=== PATIENT | male | born 1960 | race Caucasian/White ===

== ENCOUNTER 2018-09-15 14:04 | Emergency (ER) | payer OTHER ==
[2018-09-15 14:12] VITALS: TEMP 97.4; O2SAT 98
[2018-09-15] MEDS ORDERED: Lidocaine Hydrochloride 5 ML INJ ONE (14:51)
[2018-09-15] MEDS ORDERED: Lidocaine Hydrochloride 10 ML INJ ONE (16:14)
[2018-09-15] MEDS ORDERED: Oxycodone/Acetaminophen 5/325 mg Tab PO STA (16:51)
--- NOTE | 2018-09-15 16:55 | C.PDOC ---
History Of Present Illness 58 y/o male comes in to ED with a huge abscess on his left lower back. Patient states that he had this lump for years now and for the last 3 weeks, it got worse and started getting painful, associated with some redness. Patient denies any fever, chills, or other complaints. Time Seen by Provider: 09/15/18 14:36 Chief Complaint (Nursing): Abnormal Skin Integrity History Per: Patient History/Exam Limitations: no limitations Onset/Duration Of Symptoms: Days Current Symptoms Are (Timing): Still Present Past Medical History Reviewed: Historical Data, Nursing Documentation, Vital Signs Vital Signs: Last Vital Signs Temp 97.4 F L 09/15/18 14:10 Pulse 70 09/15/18 14:10 Resp 18 09/15/18 14:10 BP 168/92 H 09/15/18 14:10 Pulse Ox 98 09/15/18 14:10 - [facility] Procedures CLOSURE SKIN & SUBCUTANEOUS NEC (04/12/14) TETANUS TOXOID ADMINIST (04/12/14) Family History: States: No Known Family Hx - Social History Hx Tobacco Use: Yes Hx Alcohol Use: No Hx Substance Use: No - Immunization History Hx Tetanus Toxoid Vaccination: No Hx Influenza Vaccination: (UNK) Hx Pneumococcal Vaccination: (UNK) Review Of Systems Except As Marked, All Systems Reviewed And Found Negative. Constitutional: Negative for: Fever, Chills Skin: Positive for: Other (Abscess on left lower back) Physical Exam - Physical Exam Appears: Non-toxic, No Acute Distress Skin: Warm, Dry, Other (8 cm in diameter cystic structure, fluctuance, and tender to palpation at left lower back; some cluster of pustula in lateral aspect) Head: Atraumatic, Normacephalic Eye(s): bilateral: Normal Inspection Oral Mucosa: Moist Neck: Supple Extremity: Bilateral: Atraumatic, Normal Color And Temperature, Normal ROM Neurological/Psych: Oriented x3, Normal Speech ED Course And Treatment O2 Sat by Pulse Oximetry: 98 (RA) Pulse Ox Interpretation: Normal Progress Note: Cleocin and percocet PO given to patient. Wound culture sent to lab. Instructed patient to follow up in the clinic and to return to ED for a wound check and package removal. - Incision & Drainage Of Abscess Anesthesia: Lidocaine 1% Procedure: Incised W/Scalpel Blade#: (11), Drained Pus (Purulent discharge at first then cottage cheese-like and brownish exudate), Irrigated Cavity W/Saline, Probed To Break Up Loculations, Packed W/Gauze, Cultures Obtained And Sent To Lab Disposition - Disposition Referrals: [facility] at [facility] [Outside] Disposition: HOME/ ROUTINE Disposition Time: 16:55 Condition: STABLE Additional Instructions: Follow up in Clinic within 2-3 days. Wound check and dressing change in 2 days. Prescriptions: Clindamycin [Cleocin] 300 mg PO Q6 #28 cap oxyCODONE/Acetaminophen [Percocet 5/325 mg Tab] 1 tab PO QID PRN #20 tab PRN Reason: Pain Instructions: Abscess Incision and Drainage (DC) Forms: [employer] (Latvian), Work Excuse Print Language: MOHAWK - Clinical Impression Clinical Impression: Infected sebaceous cyst - PA / PATIENT FINANCIAL ADVOCATE / Resident Statement MD/DO has reviewed & agrees with the documentation as recorded. - Scribe Statement The provider has reviewed the documentation as recorded by the Rickyibmilana Nicolas All medical record entries made by the Rickyibmilana were at my direction and personally dictated by me. I have reviewed the chart and agree that the record accurately reflects my personal performance of the history, physical exam, medical decision making, and the department course for this patient. I have also personally directed, reviewed, and agree with the discharge instructions and disposition.
[2018-09-15] MEDS ORDERED: Oxycodone/Acetaminophen 5/325 mg Tab ONE (17:05)
[2018-09-15 17:36] VITALS: BP 132/79; PULSE 76; RESP 16
== END 2018-09-15 17:35 | disposition home or self-care (01) ==
LOC: C.ER 14:04
DX: L72.3 Sebaceous cyst (principal); Z72.0 Tobacco use

== ENCOUNTER 2018-09-17 08:32 | Emergency (ER) | payer OTHER ==
[2018-09-17 08:40] VITALS: BP 164/85; PULSE 63; RESP 18; TEMP 97.4; O2SAT 99
--- NOTE | 2018-09-17 09:31 | C.PDOC ---
History Of Present Illness 58 y/o male pt presents to the ER for wound check on his lower back, s/p I&D 2 days ago. Pt reports he has minor pain to wound site. Pt is eating well and denies fever, weakness, numbness, nausea, vomiting, change in bladder or bowel habits, SOB, chest pain, dizziness and light headedness. Patient reports he has been taking the clindamycin as prescribed. Time Seen by Provider: 09/17/18 08:42 Chief Complaint (Nursing): Wound Check History Per: Patient History/Exam Limitations: no limitations Onset/Duration Of Symptoms: Days Ago Past Medical History Reviewed: Historical Data, Nursing Documentation, Vital Signs Vital Signs: Last Vital Signs Temp 97.4 F L 09/17/18 08:36 Pulse 63 09/17/18 08:36 Resp 18 09/17/18 08:36 BP 164/85 H 09/17/18 08:36 Pulse Ox 99 09/17/18 08:36 - [facility] Procedures CLOSURE SKIN & SUBCUTANEOUS NEC (04/12/14) TETANUS TOXOID ADMINIST (04/12/14) Family History: States: No Known Family Hx - Social History Hx Tobacco Use: Yes Hx Alcohol Use: Yes Hx Substance Use: No - Immunization History Hx Tetanus Toxoid Vaccination: No Hx Influenza Vaccination: (UNK) Hx Pneumococcal Vaccination: (UNK) Review Of Systems Constitutional: Positive for: Other (eating well ). Negative for: Fever Eyes: Negative for: Pain ENT: Negative for: Ear Pain Cardiovascular: Negative for: Chest Pain, Light Headedness Respiratory: Negative for: Shortness of Breath Gastrointestinal: Negative for: Nausea, Vomiting, Abdominal Pain, Diarrhea, Constipation Genitourinary: Negative for: Dysuria Musculoskeletal: Positive for: Other (pain on wound site ) Skin: Negative for: Rash Neurological: Negative for: Dizziness Physical Exam - Physical Exam Appears: Well, Non-toxic, No Acute Distress Skin: Warm, Dry Head: Atraumatic, Normacephalic Eye(s): bilateral: PERRL, EOMI Back: Other (lower back dressing with packing; no surrounding erythema ) Extremity: Normal ROM Neurological/Psych: Oriented x3, Normal Speech Gait: Steady ED Course And Treatment O2 Sat by Pulse Oximetry: 99 (RA) Pulse Ox Interpretation: Normal Medical Decision Making Medical Decision Making: Plans: -- packing change -- ibuprofen PA Elisca changed dressing and packing pt will return in 2 days for wound check and re-packing Disposition - Disposition Disposition: HOME/ ROUTINE Disposition Time: 09:30 Condition: GOOD Additional Instructions: Return in 2 days for wound check and dressing change. Return immediately with any worsening symptoms. Follow-up with PMD within 2 days. Continue with antibiotics Instructions: Abscess Incision and Drainage (DC) Forms: [employer] (Salvadorean) - Clinical Impression Clinical Impression: Wound check, abscess, Infected sebaceous cyst - Scribe Statement The provider has reviewed the documentation as recorded by the Mireya Fofana Do Provider Attestation: All medical record entries made by the Mireya were at my direction and personally dictated by me. I have reviewed the chart and agree that the record accurately reflects my personal performance of the history, physical exam, medical decision making, and the department course for this patient. I have also personally directed, reviewed, and agree with the discharge instructions and disposition.
== END 2018-09-17 09:55 | disposition home or self-care (01) ==
LOC: C.ER 08:32
DX: Z48.00 Encounter for change or removal of nonsurgical wound dressing (principal); L72.3 Sebaceous cyst; L02.91 Cutaneous abscess, unspecified

== ENCOUNTER 2018-09-19 16:24 | Emergency (ER) | payer OTHER ==
[2018-09-19 16:35] VITALS: BP 170/84; PULSE 58; RESP 20; TEMP 98.1; O2SAT 98
--- NOTE | 2018-09-19 19:02 | C.PDOC ---
History Of Present Illness 58 y/o male presents to the ER for wound check to back. Patient states that he was evaluated in [facility] ER and had I&D 4 days ago. Patient reports that her returned to the ER 2 days ago and the abscess was repacked. He notes that he continues to have drainage. Denies having fever and chills. Time Seen by Provider: 09/19/18 16:48 Chief Complaint (Nursing): Wound Check History Per: Patient History/Exam Limitations: no limitations Past Medical History Reviewed: Historical Data, Nursing Documentation, Vital Signs Vital Signs: Last Vital Signs Temp 98.1 F 09/19/18 16:33 Pulse 58 L 09/19/18 16:33 Resp 20 09/19/18 16:33 BP 170/84 H 09/19/18 16:33 Pulse Ox 98 09/19/18 16:33 - Medical History PMH: No Chronic Diseases Other Surgeries: Hx of surgeries - [facility] Procedures CLOSURE SKIN & SUBCUTANEOUS NEC (04/12/14) TETANUS TOXOID ADMINIST (04/12/14) Family History: States: No Known Family Hx - Social History Hx Tobacco Use: Yes Hx Alcohol Use: Yes Hx Substance Use: No - Immunization History Hx Tetanus Toxoid Vaccination: No Hx Influenza Vaccination: No Hx Pneumococcal Vaccination: No Review Of Systems Except As Marked, All Systems Reviewed And Found Negative. Constitutional: Negative for: Fever, Chills Skin: Positive for: Other (back abscess drainage) Physical Exam - Physical Exam Appears: Non-toxic, No Acute Distress Skin: Normal Color, Warm, Dry, Other (back:purulent discharge from abscess with mild surrounding erythema) Head: Atraumatic, Normacephalic Eye(s): bilateral: Normal Inspection Nose: Normal Oral Mucosa: Moist Neck: Supple Chest: Symmetrical Neurological/Psych: Oriented x3, Normal Speech ED Course And Treatment O2 Sat by Pulse Oximetry: 98 (RA) Pulse Ox Interpretation: Normal Medical Decision Making Medical Decision Making: New packing has been applied to abscess. Patient tolerated well. Patient has been instructed to apply warm packs and discharged. Disposition - Disposition Disposition: HOME/ ROUTINE Disposition Time: 17:00 Condition: GOOD Additional Instructions: MARYSOL ASHLEY, thank you for letting us take care of you today. The emergency medical care you received today was directed at your acute symptoms. If you were prescribed any medication, please fill it and take as directed. It may take several days for your symptoms to resolve. Return to the Emergency Department if your symptoms worsen, do not improve, or if you have any other problems. Please contact your doctor or call one of the physicians/clinics you have been referred to that are listed on the Patient Visit Information form that is included in your discharge packet. Bring any paperwork you were given at d ischarge with you along with any medications you are taking to your follow up visit. Our treatment cannot replace ongoing medical care by a primary care provider outside of the emergency department. Thank you for allowing the [facility] team to be part of your care today. YOU NEED TO APPLY WARM PACKS TO THE AREA MULTIPLE TIMES A DAY. Follow up with the emergency room in 2 days for a wound evaluation. MARYSOL ASHLEY, hallie por dejarnos cuidar de wei couch. La atencin mdica de emergencia que recibi hoy se dirigi a iván sntomas agudos. Si le recetaron algn medicamento, llnelo y tmelo segn las indicaciones. Los sntomas pueden tardar varios mathis en resolverse. Regrese al Departamento de Emergencias si iván sntomas empeoran, no mejoran o si tiene otros problemas. Comunquese con fuller mdico o llame a yuan de los mdicos / clnicas a los que newsome sido referido que figuran en el formulario de Informacin de visita al paciente que se incluye en fuller paquete de jonh. Lleve todos los documentos que le entregaron al momento del jonh junto con todos los medicamentos que est tomando para fuller visita de seguimiento. Nuestro tratamiento no puede reemplazar la atencin mdica continua por un proveedor de atencin primaria fuera del departamento de emergencias. Hallie por permitir que el equipo de [facility] sea parte de fuller atencin howoody. NECESITA APLICAR LOS PAQUETES CALIENTES AL CHAVEZ MLTIPLES VECES AL DA. Kalyn un seguimiento en la cece de emergencias en 2 mathis para bev evaluacin de la herida. Instructions: Abscess Incision and Drainage (DC) Forms: [employer] (Northern Irish) Print Language: SLOVAK - Clinical Impression Clinical Impression: Wound check, abscess - Scribe Statement The provider has reviewed the documentation as recorded by the Scribe Sarmad Arreguin Provider Attestation: All medical record entries made by the Scribe were at my direction and personally dictated by me. I have reviewed the chart and agree that the record accurately reflects my personal performance of the history, physical exam, medical decision making, and the department course for this patient. I have also personally directed, reviewed, and agree with the discharge instructions and disposition.
== END 2018-09-19 17:18 | disposition home or self-care (01) ==
LOC: C.ER 16:24
DX: Z48.00 Encounter for change or removal of nonsurgical wound dressing (principal); L02.91 Cutaneous abscess, unspecified

== ENCOUNTER 2018-09-21 08:44 | Emergency (ER) | payer OTHER, SELFPAY ==
[2018-09-21 08:59] VITALS: BP 160/78; PULSE 60; RESP 16; TEMP 97.8; O2SAT 100
--- NOTE | 2018-09-21 09:12 | C.PDOC ---
History Of Present Illness 58 year old male comes in for a wound check and packing removal of an abscess on his left lower back. Patient initially had I&D done on 09/15/18 and had packing removed and placed 2 more times. Patient was compliant with his antibiotics clindamycin and states the area feels much better, less painful, and less swollen. Patient has no other complaints at this time. Time Seen by Provider: 09/21/18 09:03 Chief Complaint (Nursing): Abnormal Skin Integrity History Per: Patient History/Exam Limitations: no limitations Onset/Duration Of Symptoms: Days Current Symptoms Are (Timing): Still Present Past Medical History Reviewed: Historical Data, Nursing Documentation, Vital Signs Vital Signs: Last Vital Signs Temp 97.8 F 09/21/18 08:57 Pulse 60 09/21/18 08:57 Resp 16 09/21/18 08:57 BP 160/78 H 09/21/18 08:57 Pulse Ox 100 09/21/18 08:57 - [facility] Procedures CLOSURE SKIN & SUBCUTANEOUS NEC (04/12/14) TETANUS TOXOID ADMINIST (04/12/14) Family History: States: No Known Family Hx - Social History Hx Tobacco Use: Yes Hx Alcohol Use: Yes Hx Substance Use: No - Immunization History Hx Tetanus Toxoid Vaccination: No Hx Influenza Vaccination: No Hx Pneumococcal Vaccination: No Review Of Systems Constitutional: Negative for: Fever, Chills Cardiovascular: Negative for: Chest Pain Respiratory: Negative for: Shortness of Breath Gastrointestinal: Negative for: Nausea, Vomiting, Diarrhea Genitourinary: Negative for: Dysuria, Hematuria Skin: Positive for: Other (Abscess on left lower back) Physical Exam - Physical Exam Appears: Non-toxic, No Acute Distress Skin: Warm, Dry Head: Atraumatic, Normacephalic Eye(s): bilateral: Normal Inspection Oral Mucosa: Moist Neck: Supple Cardiovascular: Rhythm Regular, No Murmur Respiratory: Normal Breath Sounds, No Rales, No Rhonchi, No Wheezing Back: Other (Left lumbar area has an open pustule draining purulent discharge, mildly tender, no fluctuance, no erythema) Extremity: Bilateral: Atraumatic, Normal Color And Temperature, Normal ROM Neurological/Psych: Oriented x3, Normal Speech ED Course And Treatment O2 Sat by Pulse Oximetry: 100 (RA) Pulse Ox Interpretation: Normal Progress Note: Removed current packing and placed a new packing on the area. Patient is in no acute distress and will be discharged home. Instructed patient to return to the ER in 2 days for wound check. Disposition Counseled Patient/Family Regarding: Diagnosis, Need For Followup - Disposition Referrals: [facility] [Outside] Disposition: HOME/ ROUTINE Disposition Time: 09:15 Condition: STABLE Additional Instructions: RETURN TO EMERGENCY ROOM IN TWO DAYS FOR WOUND CHECK AND PACKING REMOVAL VUELVA A LA MIKAELA DE EMERGENCIA EN DOS PAGAN PARA EL EXAMEN DE LA HERIDA Y EL DESMONTAJE DEL EMBALAJE Instructions: Wound Care (DC) Forms: [employer] (Luxembourger) Print Language: HUNGARIAN - Clinical Impression Clinical Impression: Wound check, abscess - Scribe Statement The provider has reviewed the documentation as recorded by the Mireya Nicolas Provider Attestation: All medical record entries made by the Scribe were at my direction and personally dictated by me. I have reviewed the chart and agree that the record accurately reflects my personal performance of the history, physical exam, medical decision making, and the department course for this patient. I have also personally directed, reviewed, and agree with the discharge instructions and disposition.
== END 2018-09-21 09:15 | disposition home or self-care (01) ==
LOC: C.ER 08:44
DX: Z48.00 Encounter for change or removal of nonsurgical wound dressing (principal); L02.91 Cutaneous abscess, unspecified

== ENCOUNTER 2018-09-23 08:59 | Emergency (ER) | payer SELFPAY ==
[2018-09-23 09:18] VITALS: BP 182/75; PULSE 65; RESP 16; TEMP 98.2; O2SAT 98
[2018-09-23] MEDS ORDERED: Lidocaine Hydrochloride 10 ML INJ ONE (09:24)
--- NOTE | 2018-09-23 10:48 | C.PDOC ---
History Of Present Illness 58 y/o male presents to the ED for reevaluation of a left lower back skin wound, that has been present for years. Patient was seen here and had I&D on 09/15/18. The wound was reevaluated on the and , and packing was changed. Patient reports compliance with Clindamycin course, which he has finished. Denies any fevers or chills. Time Seen by Provider: 09/23/18 09:16 Chief Complaint (Nursing): Abnormal Skin Integrity History Per: Patient History/Exam Limitations: no limitations Onset/Duration Of Symptoms: Days Current Symptoms Are (Timing): Still Present Location Of Injury: Left: Back Past Medical History Reviewed: Historical Data, Nursing Documentation, Vital Signs Vital Signs: Last Vital Signs Temp 98.2 F 09/23/18 09:16 Pulse 65 09/23/18 09:16 Resp 16 09/23/18 09:16 BP 182/75 H 09/23/18 09:16 Pulse Ox 98 09/23/18 09:16 Surgical History: Hernia Repair - [facility] Procedures CLOSURE SKIN & SUBCUTANEOUS NEC (04/12/14) TETANUS TOXOID ADMINIST (04/12/14) Family History: States: No Known Family Hx - Social History Hx Tobacco Use: Yes Hx Alcohol Use: Yes Hx Substance Use: No - Immunization History Hx Tetanus Toxoid Vaccination: No Hx Influenza Vaccination: No Hx Pneumococcal Vaccination: No Review Of Systems Constitutional: Negative for: Fever, Chills Cardiovascular: Negative for: Chest Pain Respiratory: Negative for: Cough, Shortness of Breath Gastrointestinal: Negative for: Abdominal Pain Skin: Positive for: Other (open wound to left lower back, + purulent drainage) Neurological: Negative for: Weakness, Numbness Physical Exam - Physical Exam Appears: Well, Non-toxic, No Acute Distress Skin: Warm, Dry, Other (Packing in place to wound of left lower back, with foul- smelling cheese-like drainage, (+) Fluctuance to wound, approximately 5cm in diameter, extending up to the 2 o'clock position; Packing removed and wound was irrigated and loculations broken up; There is extensive cortical tissue from presumed sebaceous cyst seen through the initial wound, with extensive de- vitalized and thickened tissue in the 7-8 o'clock position) Extremity: Bilateral: Atraumatic, Normal ROM Pulses: Left Radial: Normal, Right Radial: Normal Neurological/Psych: Oriented x3, Normal Speech Gait: Steady ED Course And Treatment O2 Sat by Pulse Oximetry: 98 (on RA) Pulse Ox Interpretation: Normal Critical Care Time - Critical Care Note Total Time (in mins): 90 Documented critical care: time excludes all time spent performing seperately billable procedures. Laceration - Laceration Repair inner layer Wound Length (In cm): 5 Description Of Wound: Linear Wound Cleansed With: Betadine, Sterile Saline Anesthesia: Lidocaine 1% Wound Examination: Irrigated With Saline Wound Closure: Suture (x 3) Suture Technique And Material Used: Interrupted, Vicryl (2:0) Wound Complexity: Simple outer layer Wound Length (In cm): 5 Description Of Wound: Linear Wound Cleansed With: Betadine, Sterile Saline Anesthesia: Lidocaine 1% Wound Examination: Irrigated With Saline Wound Debridement/Revision: Wound Debrided, Wound Margins Revised Wound Closure: Suture (x 6) Suture Technique And Material Used: Interrupted, Nylon (6:0) Wound Complexity: Simple Medical Decision Making Medical Decision Making: Initial Impression: Visit for wound check Wound was anesthetized and cleaned, loculations broken up. Wound was retracted, and complete decortication of the prior cystic cortex extensive dark ramirez capsule material was adherent to the inner SQ tissues and was removed with blunt dissection and gentle scalpel dissection. Extensively irrigated and hemostasis to a bloodless base achieved, no FB or remaining packing/tools/noted. Wound closed in 2 layers (see procedure note) Extensively irrigated wound Patient tolerated well Prior microbiology culture shows growth of corynebacterium, scant gram+ cocci, in pairs and clusters, no sensitivity available. Amoxicilling/ibuprofen/tramadol given large abdominal pad with pressure dressing applied for adequate wound compression to avoid wound hematoma Clinical Impression: sebaceous cyst, poorly healing due to retained pieces of cortex/capsule now wound revised and capsule material removed. Disposition Doctor Will See Patient In The: Office Counseled Patient/Family Regarding: Studies Performed, Diagnosis - Disposition Referrals: [facility] [Outside] [facility] [Outside] [facility] [Outside] Disposition: HOME/ ROUTINE Disposition Time: 10:56 Condition: GOOD Additional Instructions: raheel el antibiotico (Augmentin) 2 veces al jakub por 5 maradiaga en total Ibuprofeno 400-600 mg cada 6 horas seda necessario para dolor localizado bolsa de hielo encima 1/2 hora por hora seda necessario Tramadol 50 mg (narcotico) 1 tableta cada 4-6 horas para selena mas severos Regressa el Miercoles para revisar la herida (wound check) Regressa el Viernes despues de la 1 de la tarde para revisar la herida con Dr. Phan Prescriptions: Amoxicillin/Clavulanate [Augmentin 875 MG-125 MG] 1 tab PO BID #9 tab RX: traMADol [Ultram] 50 mg PO Q6H PRN #10 tab PRN Reason: pain Instructions: Abscess Incision and Drainage (DC) Forms: [employer] (Mosotho) Print Language: SCOTTISH - Clinical Impression Clinical Impression: Infected sebaceous cyst of skin - Scribe Statement The provider has reviewed the documentation as recorded by the Scribe Alie Kauffman Provider Attestation: All medical record entries made by the Scribe were at my direction and personally dictated by me. I have reviewed the chart and agree that the record accurately reflects my personal performance of the history, physical exam, medical decision making, and the department course for this patient. I have also personally directed, reviewed, and agree with the discharge instructions and disposition.
[2018-09-23] MEDS ORDERED: Amoxicillin-Clav 875-125 mg Tab PO STA (10:55)
[2018-09-23] MEDS ORDERED: Amoxicillin-Clav 875-125 mg Tab PO ONE (11:01)
== END 2018-09-23 11:20 | disposition home or self-care (01) ==
LOC: C.ER 08:59
DX: L72.3 Sebaceous cyst (principal); Z72.0 Tobacco use

== ENCOUNTER 2018-09-25 16:10 | Emergency (ER) | payer OTHER ==
[2018-09-25 16:22] VITALS: BMI 19.5
[2018-09-25 16:24] VITALS: BP 155/84; PULSE 63; RESP 18; TEMP 98.4; O2SAT 100
[2018-09-25] MEDS ORDERED: Bacitracin 500 Units/gm Oint Foilpak UD TOP ONE (16:50)
--- NOTE | 2018-09-25 16:54 | C.PDOC ---
History Of Present Illness 58 y/o male here for wound check. pt seen in ed on 09/15,,,16,18 and today. First visit was for infected sebaceous cyst that was incised and pt put on po antibiotics. pt returned next 3 visits for post i and d wound check/packing change. on 5th visit, pt seen by Dr Phan, who removed cystic capsule and other debris from wound and then sutured wound. pt denies any complaints at this time, no fever, no pain. Time Seen by Provider: 09/25/18 16:27 Chief Complaint (Nursing): Wound Check History Per: Patient History/Exam Limitations: no limitations Onset/Duration Of Symptoms: Days Ago (10) Current Symptoms Are (Timing): Better Location Of Injury: Left: Back Quality Of Symptoms: Draining. denies: Painful Past Medical History Reviewed: Historical Data, Nursing Documentation, Vital Signs Vital Signs: Last Vital Signs Temp 98.4 F 09/25/18 16:22 Pulse 63 09/25/18 16:22 Resp 18 09/25/18 16:22 BP 155/84 H 09/25/18 16:22 Pulse Ox 100 09/25/18 16:22 - Medical History PMH: No Chronic Diseases Surgical History: Hernia Repair - [facility] Procedures CLOSURE SKIN & SUBCUTANEOUS NEC (04/12/14) TETANUS TOXOID ADMINIST (04/12/14) Family History: States: Unknown Family Hx - Social History Hx Tobacco Use: Yes Hx Alcohol Use: Yes Hx Substance Use: No - Immunization History Hx Tetanus Toxoid Vaccination: No Hx Influenza Vaccination: No Hx Pneumococcal Vaccination: No Review Of Systems Constitutional: Negative for: Fever, Chills Skin: Positive for: Other Physical Exam - Physical Exam Appears: Non-toxic, No Acute Distress Skin: Warm, Dry, Other (well healing surgical wound on left lower back, no swelling or drainage noted, no erythema or warmth, non tender, covered with abdominal pad with dried blood. ) Head: Atraumatic, Normacephalic ED Course And Treatment O2 Sat by Pulse Oximetry: 100 Medical Decision Making Medical Decision Making: dressing changed. bacitracin applied and will d/c pt, who will return to ed on sun. Disposition Counseled Patient/Family Regarding: Diagnosis, Need For Followup - Disposition Disposition: HOME/ ROUTINE Disposition Time: 17:02 Condition: GOOD Additional Instructions: Regrese a la cece de emergencias el viernes para revisar la herida. Tylenol para el dolor si es necesario. Return to ER on Sunday for wound check. Tylenol for pain if needed. Forms: Gen Discharge Inst Bruneian, [facility] (Bruneian) Print Language: PAKISTANI - Clinical Impression Clinical Impression: Wound check, abscess
[2018-09-25] MEDS ORDERED: Bacitracin 500 Units/gm Oint Foilpak UD ONE (17:17)
== END 2018-09-25 17:17 | disposition home or self-care (01) ==
LOC: C.ER 16:10
DX: Z48.00 Encounter for change or removal of nonsurgical wound dressing (principal); L02.212 Cutaneous abscess of back [any part, except buttock and flank]

== ENCOUNTER 2018-09-27 15:45 | Emergency (ER) | payer OTHER ==
[2018-09-27 15:46] VITALS: BMI 19.5
[2018-09-27 16:20] VITALS: BP 138/78; PULSE 67; RESP 18; TEMP 98.7; O2SAT 98
--- NOTE | 2018-09-27 16:33 | C.PDOC ---
History Of Present Illness This is 58 year old male with hx of a sebaceous cyst s/p multiple I&Ds (last was 09/23/18, where the cystic capsule was removed and sutured), here for wound check. Patient reports he feels well. Denied fever, chills, or pain. Wound is healing well. Sutures in place. No signs of cellulitis. Time Seen by Provider: 09/27/18 16:21 Chief Complaint (Nursing): Wound Check History Per: Patient History/Exam Limitations: no limitations Onset/Duration Of Symptoms: Days Ago Current Symptoms Are (Timing): Gone Location Of Injury: Left: Back Severity: None Pain Scale Rating Of: 0 Past Medical History Vital Signs: Last Vital Signs Temp 98.7 F 09/27/18 16:18 Pulse 67 09/27/18 16:18 Resp 18 09/27/18 16:18 BP 138/78 09/27/18 16:18 Pulse Ox 98 09/27/18 16:18 Surgical History: Hernia Repair - [facility] Procedures CLOSURE SKIN & SUBCUTANEOUS NEC (04/12/14) TETANUS TOXOID ADMINIST (04/12/14) Family History: States: Unknown Family Hx - Social History Hx Tobacco Use: Yes Hx Alcohol Use: No Hx Substance Use: No - Immunization History Hx Tetanus Toxoid Vaccination: No Hx Influenza Vaccination: No Hx Pneumococcal Vaccination: No Review Of Systems Constitutional: Negative for: Fever, Chills Physical Exam - Physical Exam Appears: Well, Non-toxic, No Acute Distress Skin: Normal Color, Warm, Dry Head: Atraumatic, Normacephalic Cardiovascular: Rhythm Regular Respiratory: Normal Breath Sounds Back: Other (Wound is healing well. Sutures in place. No signs of cellulitis. dressings with mild discharge ) ED Course And Treatment O2 Sat by Pulse Oximetry: 98 Medical Decision Making Medical Decision Making: Abscess s/p I&D w/ sutures - wound check -- Wound is healing well. No evidence of cellulitis. -- Wound cleaned, dressed, and wrapped with suzan bandage. Disposition Doctor Will See Patient In The: ED Counseled Patient/Family Regarding: Need For Followup - Disposition Disposition: HOME/ ROUTINE Disposition Time: 17:02 Condition: GOOD Additional Instructions: Please keep the area clean, dry Please follow up on Sunday09/30/18. Please take care and be well! ---- Por favor, mantenga el pina limpia, seco por favor siga el lunes 09/30/18. Por favor, tenga cuidado y estar zarina! Forms: [employer] (Occitan) - POA Present On Arrival: None - Clinical Impression Clinical Impression: Wound check, abscess
== END 2018-09-27 17:10 | disposition home or self-care (01) ==
LOC: C.ER 15:45
DX: Z48.89 Encounter for other specified surgical aftercare (principal)

== ENCOUNTER 2018-09-30 15:47 | Emergency (ER) | payer MEDICAID, OTHER ==
[2018-09-30 15:47] VITALS: BMI 19.5
[2018-09-30 16:05] VITALS: BP 140/81; PULSE 69; RESP 18; TEMP 98.4; O2SAT 97
--- NOTE | 2018-09-30 19:13 | C.PDOC ---
History Of Present Illness 58 year old male comes in to ED for a wound check of an abscess on his back. Patient has been to the ER multiple times and he currently has stitches on his back that was placed 1 week ago. Patient reports a small amount of clear liquid discharge from the wound. Otherwise he has no other complaints at this time. Time Seen by Provider: 09/30/18 16:09 Chief Complaint (Nursing): Wound Check History Per: Patient History/Exam Limitations: no limitations Onset/Duration Of Symptoms: Days Ago Current Symptoms Are (Timing): Still Present Past Medical History Reviewed: Historical Data, Nursing Documentation, Vital Signs Vital Signs: Last Vital Signs Temp 98.4 F 09/30/18 16:03 Pulse 69 09/30/18 16:03 Resp 18 09/30/18 16:03 BP 140/81 09/30/18 16:03 Pulse Ox 97 09/30/18 16:03 Surgical History: Hernia Repair - [facility] Procedures CLOSURE SKIN & SUBCUTANEOUS NEC (04/12/14) TETANUS TOXOID ADMINIST (04/12/14) Family History: States: No Known Family Hx - Social History Hx Tobacco Use: Yes Hx Alcohol Use: No Hx Substance Use: No - Immunization History Hx Tetanus Toxoid Vaccination: No Hx Influenza Vaccination: No Hx Pneumococcal Vaccination: No Review Of Systems Except As Marked, All Systems Reviewed And Found Negative. Constitutional: Negative for: Fever, Chills Cardiovascular: Negative for: Chest Pain Respiratory: Negative for: Shortness of Breath Gastrointestinal: Negative for: Nausea, Vomiting Skin: Positive for: Other (Abscess on left lower back) Physical Exam - Physical Exam Appears: Non-toxic, No Acute Distress Skin: Warm, Dry Head: Atraumatic, Normacephalic Eye(s): bilateral: Normal Inspection Oral Mucosa: Moist Neck: Supple Cardiovascular: Rhythm Regular, No Murmur Respiratory: Normal Breath Sounds, No Rales, No Rhonchi, No Wheezing Back: Other (Well healed laceration with sutures in place) Extremity: Bilateral: Normal ROM Neurological/Psych: Oriented x3, Normal Speech ED Course And Treatment O2 Sat by Pulse Oximetry: 97 (RA) Pulse Ox Interpretation: Normal Medical Decision Making Medical Decision Making: Procedure: Six sutures removed. Disposition - Disposition Referrals: [facility] Dior Dey, [Non-Staff] - Disposition: HOME/ ROUTINE Disposition Time: 16:30 Condition: GOOD Additional Instructions: MARYSOL ASHLEY, thank you for letting us take care of you today. The emergency medical care you received today was directed at your acute symptoms. If you were prescribed any medication, please fill it and take as directed. It may take several days for your symptoms to resolve. Return to the Emergency Department if your symptoms worsen, do not improve, or if you have any other problems. Please contact your doctor or call one of the physicians/clinics you have been referred to that are listed on the Patient Visit Information form that is included in your discharge packet. Bring any paperwork you were given at discharge with you along with any medications you are taking to your follow up visit. Our treatment cannot replace ongoing medical care by a primary care provider outside of the emergency department. Thank you for allowing the [facility] team to be part of your care today. Follow up with your primary care doctor if you have any concerns. MARYSOL ASHLEY, hallie por dejarnos cuidar de usalma couch. La atencin mdica de emergencia que recibi hoy se dirigi a iván sntomas agudos. Si le recetaron algn medicamento, llnelo y tmelo segn las indicaciones. Los sntomas pueden tardar varios mathis en resolverse. Regrese al Departamento de Emergencias si iván sntomas empeoran, no mejoran o si tiene otros problemas. Comunquese con fuller mdico o llame a yuan de los mdicos / clnicas a los que newsome sido referido que figuran en el formulario de Informacin de visita al paciente que se incluye en fuller paquete de jonh. Lleve todos los documentos que le entregaron al momento del jonh junto con todos los medicamentos que est tomando para fuller visita de seguimiento. Nuestro tratamiento no puede reemplazar la atencin mdica continua por un proveedor de atencin primaria fuera del departamento de emergencias. Hallie por permitir que el equipo de [facility] sea parte de fuller atencin hoy. Kalyn un seguimiento con fuller mdico de atencin primaria si tiene alguna inquietud. Instructions: Wound Care (DC) Forms: [employer] (Prydeinig) Print Language: NAMIBIAN - Clinical Impression Clinical Impression: Visit for suture removal - Scribe Statement The provider has reviewed the documentation as recorded by the Scribe Marycruz Nicolas Provider Attestation: All medical record entries made by the Scribe were at my direction and personally dictated by me. I have reviewed the chart and agree that the record accurately reflects my personal performance of the history, physical exam, medical decision making, and the department course for this patient. I have also personally directed, reviewed, and agree with the discharge instructions and disposition.
== END 2018-09-30 16:47 | disposition home or self-care (01) ==
LOC: C.ER 15:47
DX: Z48.02 Encounter for removal of sutures (principal)